=== PATIENT | male | born 1990 | race Caucasian/White ===

== ENCOUNTER 2018-11-12 18:34 | Emergency (ER) | payer MEDICAID ==
[~2018-11-12] VITALS: Ht 175.3 cm; Wt 95.2 kg
[2018-11-12 18:43] VITALS: BP 127/87
[2018-11-12] MEDS ORDERED: BUPIVACAINE 0.25% ONE (19:12)
[2018-11-12] MEDS ORDERED: LIDOCAINE-MPF 1%, 5ML ONE (19:12)
--- NOTE | 2018-11-12 19:15 | NUR ---
RIGHT FACIAL DENTAL PAIN
--- NOTE | 2018-11-12 19:22 | NUR ---
Linnette benoitreginaldo in ED - 11/12/18 at 1939 by JOSE D COUGH, CONGESTION KEEPING PT UP AT NIGHT AND MAKING IT DIFFICULT FOR HIM TO DRINK BOTTLE
[2018-11-12] MEDS ORDERED: LIDOCAINE-MPF 1%, 5ML INFIL ONE (19:30)
[2018-11-12] MEDS ORDERED: BUPIVACAINE/PF-EPI 0.25% 1:200K SQ ONE (19:30)
== END 2018-11-12 19:41 | disposition home or self-care (01) ==
LOC: ED 19:31
DX: K08.89 Other specified disorders of teeth and supporting structures (principal); F11.10 Opioid abuse, uncomplicated; Z72.9 Problem related to lifestyle, unspecified; F17.200 Nicotine dependence, unspecified, uncomplicated
CPT/HCPCS: 64402; 99284